=== PATIENT | male | born 1985 | race Caucasian/White ===

== ENCOUNTER → 2017-04-12 | Outpatient (CLI) | payer OTHER ==
[2015-10-26 10:32] VITALS: BP 139/87
[~2017-04-12] MED LIST: HYDR-79 PO; ONDA8TAB12 PO
== END | disposition home or self-care (01) ==
LOC: SURG 12:53
PROVIDERS: ATTEND Anesthesiology
DX: M54.14 Radiculopathy, thoracic region (principal); M47.814 Spondylosis without myelopathy or radiculopathy, thoracic region; M79.1 Myalgia; F17.210 Nicotine dependence, cigarettes, uncomplicated; Z72.89 Other problems related to lifestyle
CPT/HCPCS: 99204

== ENCOUNTER 2017-04-16 19:15 | Emergency (ER) | payer OTHER ==
[~2017-04-16] VITALS: Ht 177.8 cm; Wt 79.1 kg
[2017-04-16 20:30] LABS: INFLUENZA A PATIENT NEGATIVE (NEGATIVE); INFLUENZA B PATIENT NEGATIVE (NEGATIVE)
--- NOTE | 2017-04-16 21:51 | ED.ADGEN ---
Past History Past Medical History: No Pertinent History Past Surgical History: No Surgical History Alcohol Use: Occasionally Drug Use: None Adult General Chief Complaint Chief Complaint " I got a sore throat.. "I hurt all over".. I can't go to work like this" HPI HPI Patient is a 31 year old male who presents with above hx and complaints of pharyngitis malaise, myalgia, and fevers. Patient denies any history of immunosuppression. Patient denies any specific ill contacts. Patient denies any travel. Patient did not get a flu vaccination this year. Review of Systems Review of Systems Constitutional: Complaints of fever or chills [] Eyes: Denies change in visual acuity, redness, or eye pain [] HENT: Complaints of nasal congestion and sore throat [] Respiratory: Denies cough or shortness of breath [] Cardiovascular: No additional information not addressed in HPI [] GI: Denies abdominal pain, nausea, vomiting, bloody stools or diarrhea [] : Denies dysuria or hematuria [] Musculoskeletal: Complains of generalized muscle and joint pain [] Integument: Denies rash or skin lesions [] Neurologic: Denies headache, focal weakness or sensory changes [ Endocrine: Denies polyuria or polydipsia [] All other systems were reviewed and found to be within normal limits, except as documented in this note. Family History Family History Noncontributory Current Medications Current Medications Current Medications Medications (Trade) Dose Ordered Sig/Isabelle Start Time Stop Time Status Last Admin Dose Admin Ketorolac Tromethamine (Toradol) 60 mg 1X ONCE 04/16/17 22:15 04/16/17 22:16 DC 04/16/17 22:59 60 MG Lactated Ringer's 1,000 ml @ 1,000 mls/hr Q1H 04/16/17 23:45 04/17/17 00:07 DC 04/17/17 00:06 1,000 MLS/HR Ondansetron HCl (Zofran Odt) 8 mg 1X ONCE 04/16/17 22:15 04/16/17 22:16 DC 04/16/17 23:00 8 MG Prednisone (Prednisone) 50 mg 1X ONCE 04/16/17 22:15 04/16/17 22:16 DC 04/16/17 22:59 50 MG Tramadol HCl (Starter Pack - Ultram) 1 startpack 1X ONCE 04/17/17 02:00 04/17/17 02:17 DC 04/17/17 02:00 1 STARTPACK Allergies Allergies Allergies Coded Allergies Type Severity Reaction Last Updated Verified No Known Drug Allergies 10/26/15 No Physical Exam Physical Exam Constitutional: Well developed, well nourished, no acute distress, non-toxic appearance. [] HENT: Normocephalic, atraumatic, bilateral external ears normal, oropharynx moist, no oral exudates, nose normal. [] Eyes: PERRLA, EOMI, conjunctiva normal, no discharge. [] Neck: Normal range of motion, no tenderness, supple, no stridor. [] Cardiovascular:Heart rate regular rhythm, no murmur [] Lungs & Thorax: Bilateral breath sounds clear to auscultation [] Abdomen: Bowel sounds normal, soft, no tenderness, no masses, no pulsatile masses. [] Skin: Warm, dry, no erythema, no rash. [] Back: No tenderness, no CVA tenderness. [] Extremities: No tenderness, no cyanosis, no clubbing, ROM intact, no edema. [] Neurologic: Alert and oriented X 3, normal motor function, normal sensory function, no focal deficits noted. [] Psychologic: Affect normal, judgement normal, mood normal. [] Current Patient Data Lab Results Laboratory Tests Test 04/16/17 19:50 04/16/17 19:55 04/16/17 23:50 04/16/17 23:58 Group A Streptococcus Rapid Negative (NEGATIVE) Influenza Type A (Rapid) Negative (NEGATIVE) Influenza Type B (Rapid) Negative (NEGATIVE) White Blood Count 13.1 x10^3/uL (4.0-11.0) H Red Blood Count 5.20 x10^6/uL (4.30-5.70) Hemoglobin 15.5 g/dL (13.0-17.5) Hematocrit 44.5 % (39.0-53.0) Mean Corpuscular Volume 86 fL (79-100) Mean Corpuscular Hemoglobin 30 pg (25-35) Mean Corpuscular Hemoglobin Concent 35 g/dL (31-37) Red Cell Distribution Width 13.0 % (11.5-14.5) Platelet Count 211 x10^3/uL (140-400) Neutrophils (%) (Auto) 76 % (31-73) H Lymphocytes (%) (Auto) 13 % (24-48) L Monocytes (%) (Auto) 8 % (0-9) Eosinophils (%) (Auto) 2 % (0-3) Basophils (%) (Auto) 0 % (0-3) Neutrophils # (Auto) 10.0 x10^3uL (1.8-7.7) H Lymphocytes # (Auto) 1.7 x10^3/uL (1.0-4.8) Monocytes # (Auto) 1.1 x10^3/uL (0.0-1.1) Eosinophils # (Auto) 0.3 x10^3/uL (0.0-0.7) Basophils # (Auto) 0.0 x10^3/uL (0.0-0.2) Sodium Level 140 mmol/L (136-145) Potassium Level 3.7 mmol/L (3.5-5.1) Chloride Level 104 mmol/L (98-107) Carbon Dioxide Level 25 mmol/L (21-32) Anion Gap 11 (6-14) Blood Urea Nitrogen 12 mg/dL (8-26) Creatinine 1.1 mg/dL (0.7-1.3) Estimated GFR (Cockcroft-Gault) 77.1 Glucose Level 100 mg/dL (70-99) H Calcium Level 9.0 mg/dL (8.5-10.1) Total Bilirubin 1.0 mg/dL (0.2-1.0) Direct Bilirubin 0.3 mg/dL (0.0-0.2) H Aspartate Amino Transferase (AST) 28 U/L (15-37) Alanine Aminotransferase (ALT) 49 U/L (16-63) Alkaline Phosphatase 65 U/L (46-116) Total Protein 7.1 g/dL (6.4-8.2) Albumin 3.8 g/dL (3.4-5.0) Urine Collection Type Void Urine Color Yellow Urine Clarity Clear Urine pH 5.5 Urine Specific [place] 1.015 Urine Protein Neg (NEG-TRACE) Urine Glucose (UA) Neg mg/dL (NEG) Urine Ketones (Stick) 15 mg/dL (NEG) Urine Blood Neg (NEG) Urine Nitrite Neg (NEG) Urine Bilirubin Neg (NEG) Urine Urobilinogen Dipstick 0.2 mg/dL (0.2 mg/dL) Urine Leukocyte Esterase Neg (NEG) Urine RBC 0 /HPF (0-2) Urine WBC 0 /HPF (0-4) Urine Squamous Epithelial Cells None /LPF Urine Bacteria 0 /HPF (0-FEW) EKG EKG [] Radiology/Procedures Radiology/Procedures [] Course & Med Decision Making Course & Med Decision Making Pertinent Labs and Imaging studies reviewed. (See chart for details). Gargle with Listerine- 4 x a day[] take Benadryl as needed for congestion. Take Tylenol and ibuprofen for pain. Follow-up primary care. Return if any concerns. Final Impression Final Impression 1. Viral Syndrome 2. Viral Pharyngitis[] Problems: Dragon Disclaimer Dragon Disclaimer This electronic medical record was generated, in whole or in part, using a voice recognition dictation system. SERGIO NGUYEN MD Apr 16, 2017 21:51
[2017-04-16] MEDS ORDERED: ONDA8TAB12 PO (21:58)
[2017-04-16] MEDS ORDERED: HYDR-79 PO (21:58)
[2017-04-16] MEDS: KETOROLAC 60 MG/2 ML VIAL. IM ONE (22:59)
[2017-04-16] MEDS: predniSONE 10 MG TABLET PO ONE (22:59)
[2017-04-16] MEDS: ONDANSETRON ODT 4 MG TAB.RAPDIS PO ONE (23:00)
[2017-04-17] MEDS: IV RINGERS SOLUTION,LACTATED 1,000 ML IV SCH (00:06)
[2017-04-17 00:47] LABS: BACTERIA,URINE 0 /HPF (0-FEW); BILIRUBIN,URINE NEG (NEG); CLARITY,URINE CLEAR; COLOR,URINE YELLOW; GLUCOSE,URINE NEG (NEG); NITRITE,URINE NEG (NEG); RBC,URINE 0 /HPF (0-2); UROBILINOGEN,URINE 0.2 mg/dL (0.2 mg/dL); WBC,URINE 0 /HPF (0-4)
[2017-04-17 01:04] LABS: BASO % 0 % (0-3); EOS # 0.3 x10^3/uL (0.0-0.7); EOS % 2 % (0-3); HEMATOCRIT 44.5 % (39.0-53.0); HEMOGLOBIN 15.5 g/dL (13.0-17.5); LYMPH # 1.7 x10^3/uL (1.0-4.8); LYMPH % 13 % (24-48); MEAN CORPUSCULAR HEMOGLOBIN 30 pg (25-35); MEAN CORPUSCULAR HGB CONC 35 g/dL (31-37); MEAN CORPUSCULAR VOLUME 86 fL (79-100); MONO # 1.1 x10^3/uL (0.0-1.1); MONO % 8 % (0-9); NEUT % 76 % (31-73); PLATELET COUNT 211 x10^3/uL (140-400); WHITE BLOOD COUNT 13.1 x10^3/uL (4.0-11.0)
[2017-04-17 01:23] LABS: ALBUMIN 3.8 g/dL (3.4-5.0); CREATININE 1.1 mg/dL (0.7-1.3); DIRECT BILIRUBIN 0.3 mg/dL (0.0-0.2); GFR 77.1; POTASSIUM 3.7 mmol/L (3.5-5.1); TOTAL PROTEIN 7.1 g/dL (6.4-8.2)
[2017-04-17] MEDS: START PACK - traMADol 1 STARTPACK TABLET PO ONE (02:00)
[2017-04-17 02:15] VITALS: BP 113/72
== END 2017-04-17 02:20 | disposition home or self-care (01) ==
LOC: ER 19:15
DX: J02.8 Acute pharyngitis due to other specified organisms (principal); B34.9 Viral infection, unspecified
CPT/HCPCS: 36415; 80048; 80076; 81001; 85025; 87070; 87804; 87880; 96360; 96372; 99284; J1885; J7120; J7512; Q0162

== ENCOUNTER → 2017-05-20 | Outpatient (CLI) | payer OTHER ==
[~2017-05-20] MED LIST changes: +0.9 % SODIUM CHLORIDE 10 ML VIAL ONE; +ACETAMINOPHEN 325 MG TABLET PO ONE; +DEXAMETHASONE SOD PHOS 4 MG/ML VIAL ONE; +IOHEXOL 300 MG/ML 50 ML VIAL. ONE; +LIDOCAINE 1% PF 30 ML VIAL. ONE
== END | disposition home or self-care (01) ==
LOC: SURG 13:02
PROVIDERS: ATTEND Anesthesiology Pain Medicine
DX: M54.14 Radiculopathy, thoracic region (principal); Z91.013 Allergy to seafood
CPT/HCPCS: 62321; J1100; J2001; Q9967

== ENCOUNTER → 2017-08-02 | Outpatient (CLI) | payer OTHER ==
[~2017-08-02] MED LIST changes: -0.9 % SODIUM CHLORIDE 10 ML VIAL ONE; -ACETAMINOPHEN 325 MG TABLET PO ONE; -DEXAMETHASONE SOD PHOS 4 MG/ML VIAL ONE; -IOHEXOL 300 MG/ML 50 ML VIAL. ONE; -LIDOCAINE 1% PF 30 ML VIAL. ONE
== END | disposition home or self-care (01) ==
LOC: SURG 11:21
PROVIDERS: ATTEND Anesthesiology
DX: M54.6 Pain in thoracic spine (principal); R51 Headache
CPT/HCPCS: 99214